=== PATIENT | male | born 1950 | race Caucasian/White ===

== ENCOUNTER → 2020-03-02 10:55 | Outpatient (BNVA) | payer MEDICARE, BC, SELFPAY | PROVIDERS: Family Provider Registered Nurse; PCP Registered Nurse; Visit Provider Urology | DX: C61 Malignant neoplasm of prostate (principal); R97.20 Elevated prostate specific antigen [PSA] | CPT/HCPCS: 81001; 84153 ==

== ENCOUNTER → 2020-03-16 10:04 | Outpatient (BNVA) | payer MEDICARE, BC, SELFPAY | PROVIDERS: Family Provider Registered Nurse; PCP Registered Nurse; Visit Provider Registered Nurse | DX: I10 Essential (primary) hypertension (principal); E78.5 Hyperlipidemia, unspecified; Z00.00 Encounter for general adult medical examination without abnormal findings; Z53.20 Procedure and treatment not carried out because of patient's decision for unspecified reasons | CPT/HCPCS: 80053; 80061; 85025 ==

== ENCOUNTER → 2020-04-20 09:09 | Outpatient (BNVA) | payer MEDICARE, BC, SELFPAY | PROVIDERS: Family Provider Registered Nurse; PCP Registered Nurse; Visit Provider Urology | DX: R39.12 Poor urinary stream (principal); N30.90 Cystitis, unspecified without hematuria; C61 Malignant neoplasm of prostate | CPT/HCPCS: 81001 ==

== ENCOUNTER → 2020-05-10 09:05 | Outpatient (BNVA) | payer MEDICARE, BC, SELFPAY | PROVIDERS: Family Provider Registered Nurse; PCP Registered Nurse; Visit Provider Urology | DX: N30.90 Cystitis, unspecified without hematuria (principal); R33.8 Other retention of urine; N35.913 Unspecified membranous urethral stricture, male; R30.0 Dysuria; R39.198 Other difficulties with micturition; C61 Malignant neoplasm of prostate | CPT/HCPCS: 81001 ==

== ENCOUNTER 2020-05-12 11:30 | Day surgery (SDC) | payer MEDICARE, BC, SELFPAY ==
[2020-05-11 10:28] VITALS: BMI 29.5
[2020-05-12] VITALS (7 sets, daily range): BP systolic 120–149; BP diastolic 70–78; PULSE 65–75; RESP 16–19; TEMP 36.2–37; O2SAT 96–100
--- NOTE | 2020-05-12 | SCC_ITS ---
Procedure: After routine preoperative evaluation examination and obtaining of informed consent he was taken to the operating suite on 05/12/2020 where general anesthesia was administered without difficulty after appropriate timeout was performed, SCDs confirmed to be functioning, preoperative antibiotics administered, beta-vivi protocol confirmed. 52.3 seconds of fluoroscopic guidance, for a cumulative dose of 10.34 mGy, was provided to Dr. Barrientos by the radiology department. C-arm images of the abdomen were saved for the patient's permanent record. YOBANY
--- NOTE | 2020-05-12 11:47 | P.ANESASSM_ITS ---
Pre-Anesthetic Assessment Pre-Anesthetic Assessment: Height/Weight: Height 1.8 m Weight 96.162 kg Temp Pulse Resp BP Pulse Ox 98.6 F 66 18 149/73 97 05/12/20 11:40 05/12/20 11:40 05/12/20 11:40 05/12/20 11:40 05/12/20 11:40 Preop Diagnosis: Urethral stricture Proposed Procedure: Operation Date: 05/12/20 13:05 Proposed Procedures p Cystoscopy/85770 N35.913(Not Applicable) - Shaw Barrientos MD s Urethral Dilation(Not Applicable) - Shaw Barrientos MD Familial anesthetic complications: None Was Beta Alfred taken within 24 hours: N/A Last intake: 16 oz water at 0700 dinner at 1800 yesterday Social: Social History: Alcohol and Tobacco Exam: Pre-Anes Outpt Exam: alert, oriented x 3, clear to auscultation bilaterally and regular rate & rhythm Airway: Cervical ROM: WNL MP: 4 Dentition: Chipped and Loose (lower teeth are loose) CV/HEM: CV/HEM: HTN : : None reported Hepatic: Hepatic: None reported GI: GI: GERD Metabolic: Metabolic: Hyperlipidemia and Morbid obesity Musc/skel: Musc/skel: None reported Neuropsych: Neuropsych: None reported Anesthetic Plan: ASA status: 2 Anesthesia: General Risk of > 500 ml blood loss (7ml/kg in children): No PFSH Anesthesia PFSH: Medical History Erectile dysfunction Membranous urethral stricture Prostate cancer Surgical History H/O vasectomy Family History Mother No problems noted. Father , at age 84 Cancer prostate Myocardial infarction (lateral wall) Social History Smoking and tobacco status: light tobacco smoker Alcohol intake: current Alcohol intake frequency: few times a month Adopted: No Caregiver/support person: No Lives independently: No Household members: spouse Marital status: Current occupational status: retired History of recent travel: No Current gender identity: Male Data Anesthesia Cardiac Studies: No Data to Display
--- NOTE | 2020-05-12 11:48 | SC_ITS ---
WS: [id number] C-arm fluoroscopy for insertion of urologic catheter, 05/12/2020 Clinical Data: Fluoroscopic guidance for urethral stricture dilation Comparison: None. Findings: Dr. Barrientos inserted a guidewire and then a urologic catheter into the urinary bladder. SC/C-arm FL for Urology Impression: Multiple imaging of insertion of catheter into urinary bladder.
[2020-05-12] MEDS: sodium chloride 0.9% 1,000 ML 30 ML IV (12:01)
--- NOTE | 2020-05-12 13:35 | W.PM.OPSUD ---
Surgery/Procedure H&P Update DATE OF PROCEDURE: May 12, 2020 DATE H&P PERFORMED: 05/10/20 H&P UPDATE INFORMATION: I have reviewed H&P completed within last 30 days, No changes to prior documentation and H&P is in [facility] [place] EMR on date indicated PREOP DIAGNOSIS: Urethral stricture PLANNED PROCEDURE: Operation Date: 05/12/20 13:05 Proposed Procedures p Cystoscopy/90810 N35.913(Not Applicable) - Shaw Barrientos MD s Urethral Dilation(Not Applicable) - Shaw Barrientos MD
--- NOTE | 2020-05-12 13:36 | P.OP_ITS ---
Operative Report Date of procedure: May 12, 2020 Pre-op Diagnosis: Membranous urethral stricture urethral stricture Post-op diagnosis: same Pathology: none sent Surgeon: Floyd Anesthesia: General Estimated blood loss: Minimal Urine output: Not measured Complications: None Findings: Tight membranous urethral stricture, easily dilated. Otoole left in place for further passive dilation Disposition: PACU Brief History: Wilfrido Turner is a delightful 69-year-old white male status post radiation therapy for prostate cancer with no evidence of recurrence who recently started complaining of decreasing force of stream, initial dysuria, and symptoms suspicious in general for possible prostatitis. He was treated with a short course of ciprofloxacin and he thought that there was some improvement in his symptoms but not resolution. For that reason that course was continued but after almost a total of 1 month of treatment he was still having for the most part significant similar symptoms. At that point a cystoscopy was performed that showed a tight membranous urethral stricture that was impassable in the clinic. It was decided to perform a cystoscopy with urethral dilation under anesthesia Procedure: After routine preoperative evaluation examination and obtaining of informed consent he was taken to the operating suite on 05/12/2020 where general anesthesia was administered without difficulty after appropriate timeout was performed, SCDs confirmed to be functioning, preoperative antibiotics administered, beta-vivi protocol confirmed. Prepped and draped in the usual sterile fashion in dorsolithotomy position pain careful attention to avoiding pressure points. 21 Tajik cystoscope with 30 degree lens was introduced into the urethral meatus and advanced to just distal to the stricture. Contrast was injected and a URETHROGRAM was performed: That showed the narrow strictured area extending no more than approximately 0.25 cm. Proximal to that the prostatic lumen and urethra looked normal. Contrast was injected into the bladder with normal appearance. Flexible tip guidewire was advanced into the stricture and under fluoroscopic guidance confirmed to be in the bladder. The urethral stricture was then dilated with renal dilator set beginning at 8 Tajik and then continuing to 18 Tajik. Utilizing first the smaller dilators then the larger dilators over the snake. Each dilation was monitored under fluoroscopic guidance and went very well. A 17 Tajik cystoscope was then passed over the guidewire easily into the bladder and the bladder was carefully inspected with 30 and 70 degree lens with no gross pathology identified. The wire was replaced and the scope was backed out. Urethral stricture that was dilated appeared as expected with no stones or other pathology located near it. A 16 Tajik point lay ira tip catheter was then advanced over the guidewire easily through the stricture into the bladder without difficulty. 10 cc was placed in the balloon the wire removed and the catheter confirmed to be working just fine. Tolerated the procedure well without complications and was awakened in the operating room and returned to the recovery in stable condition. PLANS: 1. Maintain Otoole catheter until early next week. Voiding trial in my office with [facility] instruction. 2. Discharge from outpatient surgery today with leg and night bag
[2020-05-12] MEDS: levofloxacin-dextrose 5 % 500 MG/100 ML PREMIX 100 MG IV (13:48)
[2020-05-12] MEDS: iohexol 300 mg/mL 50 mL Btl (OR ONLY) XX (14:14)
== END 2020-05-12 15:20 | disposition home or self-care (01) ==
PROVIDERS: PCP Registered Nurse; Visit Provider Urology
PROC: 0TJB8ZZ Inspection of Bladder, Via Natural or Artificial Opening Endoscopic (ICD-10-PCS; CPT 52000; principal; 2020-05-12 13:05)
PROC: (CPT 52281; 2020-05-12 13:05)
DX: N35.919 Unspecified urethral stricture, male, unspecified site (principal); Z92.3 Personal history of irradiation; Z85.46 Personal history of malignant neoplasm of prostate; I10 Essential (primary) hypertension; K21.9 Gastro-esophageal reflux disease without esophagitis; E78.5 Hyperlipidemia, unspecified; E66.01 Morbid (severe) obesity due to excess calories; Z68.29 Body mass index [BMI] 29.0-29.9, adult; F17.210 Nicotine dependence, cigarettes, uncomplicated
CPT/HCPCS: 52281; 12345; 76000; J1100; J1885; J1956; J2250; J2405; J2704; J3010; J7030

== ENCOUNTER → 2020-05-31 09:06 | Outpatient (BNVA) | payer MEDICARE, BC, SELFPAY | PROVIDERS: PCP Registered Nurse; Visit Provider Urology | DX: N35.913 Unspecified membranous urethral stricture, male (principal); C61 Malignant neoplasm of prostate | CPT/HCPCS: 81001 ==

== ENCOUNTER → 2020-08-31 10:06 | Outpatient (BNVA) | payer MEDICARE, BC, SELFPAY | PROVIDERS: PCP Registered Nurse; Visit Provider Urology | DX: C61 Malignant neoplasm of prostate (principal); N35.913 Unspecified membranous urethral stricture, male | CPT/HCPCS: 81003; 84153 ==

== ENCOUNTER → 2021-02-22 13:05 | Outpatient (BNVA) | payer MEDICARE, BC, SELFPAY | PROVIDERS: PCP Registered Nurse; Visit Provider Podiatrist Foot & Ankle Surgery | DX: M77.31 Calcaneal spur, right foot (principal); M79.672 Pain in left foot | CPT/HCPCS: 73630 ==

== ENCOUNTER → 2021-02-28 11:06 | Outpatient (BNVA) | payer MEDICARE, BC, SELFPAY | PROVIDERS: PCP Registered Nurse; Visit Provider Urology | DX: N30.90 Cystitis, unspecified without hematuria (principal); Z12.5 Encounter for screening for malignant neoplasm of prostate; C61 Malignant neoplasm of prostate; N35.913 Unspecified membranous urethral stricture, male; F17.210 Nicotine dependence, cigarettes, uncomplicated | CPT/HCPCS: 81003; G0103 ==

== ENCOUNTER 2021-04-06 14:03 | Outpatient (CLI) | payer MEDICARE, BC, SELFPAY | END 2021-04-06 14:04 | disposition home or self-care (01) | LOC: SPT 14:20 | PROVIDERS: PCP Registered Nurse; Visit Provider Podiatrist Foot & Ankle Surgery | DX: Z46.89 Encounter for fitting and adjustment of other specified devices (principal); M72.2 Plantar fascial fibromatosis | CPT/HCPCS: L3030; L4397 ==

== ENCOUNTER → 2021-07-10 11:11 | Outpatient (BNVA) | payer MEDICARE, BC, SELFPAY | PROVIDERS: PCP Registered Nurse; Visit Provider Registered Nurse | DX: I10 Essential (primary) hypertension (principal); E78.5 Hyperlipidemia, unspecified | CPT/HCPCS: 80053; 80061; 85025 ==

== ENCOUNTER → 2021-11-21 10:44 | Outpatient (BNVA) | payer MEDICARE, BC, SELFPAY | PROVIDERS: PCP Registered Nurse; Visit Provider Urology | DX: R97.20 Elevated prostate specific antigen [PSA] (principal); C61 Malignant neoplasm of prostate; N35.913 Unspecified membranous urethral stricture, male | CPT/HCPCS: 81003; 84153 ==

== ENCOUNTER 2022-04-10 06:57 | Outpatient (CLI) | payer MEDICARE, BC, SELFPAY ==
[2022-04-10 07:14] VITALS: BMI 29.2
--- NOTE | 2022-04-10 07:15 | ECG_ITS ---
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 Interpretive Statements NAME OF STUDY: DOBUTAMINE SESTAMIBI STRESS TEST INDICATION: [Exertional Shortness of Breath] Procedure: At the baseline, the blood pressure was 146/82 mmHg with a heart rate of 68 bpm. The electrocardiogram showed normal sinus rhythm, normal axis with normal ST and T's. IV dobutamine and atropine were administered to induced distress. Maximum heart rate predicted was 151 bpm. Patient reached maximum heart rate of 140 bpm which was 92% of maximum predicted heart rate. Total infusion time was 10 minutes 27 seconds. The EKG at the peak infusion revealed sinus tachycardia with no significant ST-T wave changes. Blood pressure at the end of recovery phase was 130/73 mmHg with a heart rate of 83 bpm. Conclusion: 1. Normal EKG response to dobutamine infusion 2. No dobutamine induced symptoms reported. 3. Normal blood pressure and heart rate response. 4. Sestamibi/sestamibi perfusion scan pending; see separate report. Electronically Signed On 05-19-2022 11:12:09 CDT by David Kaur M.D. [email or web address]
--- NOTE | 2022-04-10 07:15 | NMCV_ITS ---
NM venecia perf SPECT r/s* [id number] Jose Turner Age: 71 Gender: M : 1950 Exam Date: 04/10/2022 08:28 Ordering Phys: Qasim Pitts Technologist: YANET Balbuena Exam Location: [facility] Indications: Chest pain STRESS TEST [facility] IMAGE PROTOCOL Rest/Stress 1 Lexiscan Day Radiopharmaceutical Dose (mCi) Administration Site Administered by Rest: Tc-99m 10.8 IV YANET Balbuena Sestamibi Stress:Tc-99m 32.8 IV YANET Balbuena Sestamibi Rest: 10-Apr-2022 60 Discovery 630 Stress: 10-Apr-2022 30 Discovery 630 0.4mg Lexiscan. Images obtained in supine and prone position. SPECT RESULTS Technical Quality: Good Raw Data Analysis: Normal Image Corrections: No attenuation or motion correction applied Summed Stress Score: 0 Summed Rest Score: 0 Summed Difference Score: 0 PERFUSION FINDINGS SPECT images demonstrate homogeneous tracer distribution throughout the myocardium. FUNCTIONAL RESULTS (calculated via Gated SPECT) Stress Image LV EF (%): 55 Stress EDV (mL):120 TID: 1 Stress ESV (mL):54 FUNCTIONAL FINDINGS: There is normal left ventricular systolic function. IMPRESSIONS 1. Normal myocardial perfusion imaging with no evidence of ischemia. 2. LV systolic function is normal David Kaur MD (Electronically Signed) Final Date: 13 April 2022 23:24 S
[2022-04-10] MEDS: DOBUTtamine 200 MG in sodium chloride 0.9% 34 ML 14.29 MG IV (09:07)
[2022-04-10] MEDS: atropine 0.1 mg/mL Syr 10 mL 0.5 MG IVP (09:17)
[2022-04-10] MEDS: metoprolol tartrate 1 mg/1 mL SDV 5 mL 5 MG IV (09:22)
[2022-04-10 09:32] VITALS: BP 130/73; PULSE 86
== END 2022-04-10 06:58 | disposition home or self-care (01) ==
LOC: CDL 06:58
PROVIDERS: PCP Registered Nurse; Visit Provider Nurse Practitioner Family
DX: R06.02 Shortness of breath (principal)
CPT/HCPCS: 78452; 93017; A9500; J0461; J1250; J3490; J7050

== ENCOUNTER → 2022-04-17 10:20 | Outpatient (BNVA) | payer MEDICARE, BC, SELFPAY | PROVIDERS: PCP Registered Nurse; Referring Provider Registered Nurse; Visit Provider Orthopaedic Surgery | DX: M67.911 Unspecified disorder of synovium and tendon, right shoulder (principal); M25.511 Pain in right shoulder | CPT/HCPCS: 20610; 73030; 99203; J1100; J2795 ==

== ENCOUNTER → 2022-05-22 08:36 | Outpatient (BNVA) | payer MEDICARE, BC, SELFPAY | PROVIDERS: PCP Registered Nurse; Visit Provider Urology | DX: C61 Malignant neoplasm of prostate (principal) | CPT/HCPCS: 84153 ==

== ENCOUNTER → 2022-05-31 10:50 | Outpatient (BNVA) | payer MEDICARE, BC, SELFPAY | PROVIDERS: PCP Registered Nurse; Visit Provider Urology | DX: N35.913 Unspecified membranous urethral stricture, male (principal); C61 Malignant neoplasm of prostate | CPT/HCPCS: 51798; 81003; 99213 ==

== ENCOUNTER → 2022-06-14 10:54 | Outpatient (BNVA) | payer MEDICARE, BC, SELFPAY | PROVIDERS: PCP Registered Nurse; Visit Provider Nurse Practitioner Family | DX: M25.50 Pain in unspecified joint (principal); R53.83 Other fatigue; R30.0 Dysuria | CPT/HCPCS: 80053; 85025; 85651; 86140; 86160; 86162; 86235; 86255; 86376; 86431 ==

== ENCOUNTER 2022-08-16 09:41 | Outpatient (CLI) | payer MEDICARE, BC, SELFPAY ==
--- NOTE | 2022-08-16 10:15 | CT_ITS ---
WS: [id number] LDCT LUNG CANCER SCREENING TECHNIQUE: Noncontrast CT of the chest with coronal and sagittal reformatted images. CLINICAL INFORMATION: F17.210 - Nicotine dependence, cigarettes, uncomplicated COMPARISON: None. DLP: 85.39 mGy.cm DIvol: Mean CTDIvol: 1.60 (mGy) All CT scans at [facility] use at least one of these dose optimization techniques: automat ed exposure control; mA and/or kV adjustment per patient size (includes targeted exams where dose is matched to clinical indication); or iterative reconstruction. FINDINGS: Moderate chronic emphysematous changes. No acute pulmonary infiltrates. No focal pneumonia or pleural fluid. No suspicious pulmonary parenchymal opacities. Mild aortic calcification. Coronary calcification. No mediastinal or hilar lymphadenopathy. No axilla ry lymphadenopathy. Splenic granulomas. Adrenal glands are normal. Hypertrophic changes thoracic spine. CT/CT lung screening [id number] IMPRESSION: LUNG-RADS: 1-Negative FOLLOW UP: 12 Month: Continue annual screening with LDCT
== END 2022-08-16 09:42 | disposition home or self-care (01) ==
LOC: RAD 09:41
PROVIDERS: PCP Registered Nurse; Visit Provider Nurse Practitioner Family
DX: Z12.2 Encounter for screening for malignant neoplasm of respiratory organs (principal); F17.210 Nicotine dependence, cigarettes, uncomplicated
CPT/HCPCS: 71271

== ENCOUNTER → 2022-08-27 09:34 | Outpatient (BNVA) | payer MEDICARE, BC, SELFPAY | PROVIDERS: PCP Registered Nurse; Visit Provider Internal Medicine | DX: M25.9 Joint disorder, unspecified (principal); R50.9 Fever, unspecified; R79.82 Elevated C-reactive protein (CRP); Z11.59 Encounter for screening for other viral diseases; M45.0 Ankylosing spondylitis of multiple sites in spine | CPT/HCPCS: 36415; 72202; 73120; 73560; 80053; 82024; 82550; 82728; 83516; 83540; 85025; 85651; 86003; 86008; 86036; 86140; 86200; 86618; 86666; 86704; 86757; 86803; 86812; 87340; 99204 ==

== ENCOUNTER → 2022-09-27 14:27 | Outpatient (BNVA) | payer MEDICARE, BC, SELFPAY | PROVIDERS: PCP Registered Nurse; Visit Provider Internal Medicine | DX: M25.9 Joint disorder, unspecified (principal); R79.82 Elevated C-reactive protein (CRP); R50.9 Fever, unspecified; Z79.52 Long term (current) use of systemic steroids; Z92.3 Personal history of irradiation; Z85.46 Personal history of malignant neoplasm of prostate | CPT/HCPCS: 99214 ==

== ENCOUNTER → 2022-11-15 09:11 | Outpatient (BNVA) | payer MEDICARE, SELFPAY | PROVIDERS: PCP Registered Nurse; Visit Provider Nurse Practitioner Family | DX: Z15.89 Genetic susceptibility to other disease (principal); I10 Essential (primary) hypertension | CPT/HCPCS: 80053; 85025 ==

== ENCOUNTER → 2022-11-30 10:19 | Outpatient (BNVA) | payer MEDICARE, SELFPAY | PROVIDERS: PCP Registered Nurse; Visit Provider Nurse Practitioner Family | DX: C61 Malignant neoplasm of prostate (principal); R79.89 Other specified abnormal findings of blood chemistry | CPT/HCPCS: 84153; 84403 ==

== ENCOUNTER → 2022-12-04 09:41 | Outpatient (BNVA) | payer MEDICARE, BC, SELFPAY | PROVIDERS: PCP Registered Nurse; Visit Provider Urology | DX: C61 Malignant neoplasm of prostate (principal); N35.913 Unspecified membranous urethral stricture, male | CPT/HCPCS: 51798; 81003; 99213 ==

== ENCOUNTER → 2023-02-20 09:18 | Outpatient (BNVA) | payer MEDICARE, BC, SELFPAY | PROVIDERS: PCP Registered Nurse; Visit Provider Internal Medicine | DX: M19.011 Primary osteoarthritis, right shoulder (principal); M25.569 Pain in unspecified knee; M19.90 Unspecified osteoarthritis, unspecified site; M25.9 Joint disorder, unspecified; G57.93 Unspecified mononeuropathy of bilateral lower limbs | CPT/HCPCS: 80053; 82607; 82728; 82746; 83540; 84443; 85025; 85651; 86140 ==

== ENCOUNTER → 2023-04-02 08:52 | Outpatient (BNVA) | payer MEDICARE, BC, SELFPAY | PROVIDERS: PCP Registered Nurse; Visit Provider Internal Medicine | DX: M25.9 Joint disorder, unspecified (principal); R50.9 Fever, unspecified; R79.82 Elevated C-reactive protein (CRP); R21 Rash and other nonspecific skin eruption; M72.2 Plantar fascial fibromatosis | CPT/HCPCS: 99214 ==

== ENCOUNTER → 2023-04-24 09:13 | Outpatient (BNVA) | payer MEDICARE, BC, SELFPAY | PROVIDERS: PCP Registered Nurse; Visit Provider Podiatrist Foot & Ankle Surgery | DX: M72.2 Plantar fascial fibromatosis (principal); G62.9 Polyneuropathy, unspecified | CPT/HCPCS: 99213 ==

== ENCOUNTER → 2023-05-02 13:18 | Outpatient (BNVA) | payer MEDICARE, BC, SELFPAY | PROVIDERS: PCP Registered Nurse; Visit Provider Nurse Practitioner Family | DX: L30.9 Dermatitis, unspecified (principal); L57.0 Actinic keratosis; L82.1 Other seborrheic keratosis; C44.319 Basal cell carcinoma of skin of other parts of face; L57.8 Other skin changes due to chronic exposure to nonionizing radiation | CPT/HCPCS: 11102; 17000; 17003; 99213 ==

== ENCOUNTER 2023-05-21 11:29 | Outpatient (CLI) | payer MEDICARE, BC, SELFPAY | END 2023-05-21 11:30 | disposition home or self-care (01) | LOC: SPT 11:31 | PROVIDERS: PCP Registered Nurse; Visit Provider Podiatrist Foot & Ankle Surgery | DX: Z46.89 Encounter for fitting and adjustment of other specified devices (principal); M72.2 Plantar fascial fibromatosis | CPT/HCPCS: 97760; L3030 ==

== ENCOUNTER → 2023-06-10 09:10 | Outpatient (BNVA) | payer MEDICARE, BC, SELFPAY | PROVIDERS: PCP Registered Nurse; Visit Provider Dermatology | DX: C44.319 Basal cell carcinoma of skin of other parts of face (principal); L57.0 Actinic keratosis | CPT/HCPCS: 12052; 17000; 17003; 17311 ==

== ENCOUNTER → 2023-06-27 09:16 | Outpatient (BNVA) | payer MEDICARE, BC, SELFPAY | PROVIDERS: PCP Registered Nurse; Visit Provider Registered Nurse | DX: Z85.46 Personal history of malignant neoplasm of prostate (principal) | CPT/HCPCS: 84153 ==

== ENCOUNTER → 2023-07-08 09:49 | Outpatient (BNVA) | payer MEDICARE, BC, SELFPAY | PROVIDERS: PCP Registered Nurse; Visit Provider Internal Medicine | DX: M72.2 Plantar fascial fibromatosis (principal); G62.9 Polyneuropathy, unspecified; G57.93 Unspecified mononeuropathy of bilateral lower limbs; C61 Malignant neoplasm of prostate; M25.9 Joint disorder, unspecified; R50.9 Fever, unspecified; R79.82 Elevated C-reactive protein (CRP); R21 Rash and other nonspecific skin eruption | CPT/HCPCS: 36415; 80053; 81001; 82550; 82728; 83540; 84443; 85025; 85651; 86140; 99214 ==

== ENCOUNTER → 2023-10-10 11:29 | Outpatient (BNVA) | payer MEDICARE, BC, SELFPAY | PROVIDERS: PCP Registered Nurse; Visit Provider Nurse Practitioner Family | DX: L30.9 Dermatitis, unspecified (principal); L57.0 Actinic keratosis; L82.1 Other seborrheic keratosis; L57.8 Other skin changes due to chronic exposure to nonionizing radiation | CPT/HCPCS: 11104; 17000; 99213 ==

== ENCOUNTER → 2023-10-22 11:18 | Outpatient (BNVA) | payer MEDICARE, BC, SELFPAY | PROVIDERS: PCP Registered Nurse; Visit Provider Nurse Practitioner Family | DX: Z48.02 Encounter for removal of sutures (principal); L27.0 Generalized skin eruption due to drugs and medicaments taken internally; L57.8 Other skin changes due to chronic exposure to nonionizing radiation | CPT/HCPCS: 99213 ==

== ENCOUNTER → 2024-03-30 09:55 | Outpatient (BNVA) | payer MEDICARE, BC, SELFPAY | PROVIDERS: PCP Registered Nurse; Visit Provider Podiatrist Foot & Ankle Surgery | DX: M72.2 Plantar fascial fibromatosis (principal); G62.9 Polyneuropathy, unspecified | CPT/HCPCS: 99213 ==

== ENCOUNTER 2024-04-28 14:27 | Outpatient (CLI) | payer MEDICARE, BC, SELFPAY | END 2024-04-28 14:28 | disposition home or self-care (01) | LOC: SPT 14:28 | PROVIDERS: PCP Registered Nurse; Visit Provider Podiatrist Foot & Ankle Surgery | DX: Z46.89 Encounter for fitting and adjustment of other specified devices (principal); M72.2 Plantar fascial fibromatosis | CPT/HCPCS: L3030 ==

== ENCOUNTER → 2024-05-07 09:47 | Outpatient (BNVA) | payer MEDICARE, BC, SELFPAY | PROVIDERS: PCP Registered Nurse; Visit Provider Registered Nurse | DX: C61 Malignant neoplasm of prostate (principal); I10 Essential (primary) hypertension | CPT/HCPCS: 80053; 80061; 84153; 85025 ==

== ENCOUNTER 2024-05-25 10:43 | Outpatient (CLI) | payer MEDICARE, BC, SELFPAY ==
--- NOTE | 2024-05-25 11:00 | CT_ITS ---
WS: [id number] LDCT LUNG CANCER SCREENING TECHNIQUE: Noncontrast CT of the chest with coronal and sagittal reformatted images. CLINICAL INFORMATION: F17.210 - Nicotine dependence, cigarettes, uncomplicated COMPARISON: 2021 DLP: 99.01 mGy.cm DIvol: Mean CTDIvol: 2.20 (mGy) All CT scans at [facility] use at least one of these dose optimization techniques: automat ed exposure control; mA and/or kV adjustment per patient size (includes targeted exams where dose is matched to clinical indication); or iterative reconstruction. FINDINGS: Moderate chronic emphysematous changes. No suspicious pulmonary parenchymal opacities. Mild aortic calcification. Coronary calcification. No mediastinal or hilar lymphadenopathy. No axilla ry lymphadenopathy. Splenic granulomas. Adrenal glands are normal. Anterior hypertrophic changes thor acic spine. Mild thoracic curve. Mild thoracic kyphosis. CT/CT lung screening [id number] IMPRESSION: LUNG-RADS: 1-Negative FOLLOW UP: 12 Month: Continue annual screening with LDCT
== END 2024-05-25 10:44 | disposition home or self-care (01) ==
LOC: RAD 10:44
PROVIDERS: PCP Registered Nurse; Visit Provider Registered Nurse
DX: Z12.2 Encounter for screening for malignant neoplasm of respiratory organs (principal); F17.210 Nicotine dependence, cigarettes, uncomplicated; J43.9 Emphysema, unspecified; I25.84 Coronary atherosclerosis due to calcified coronary lesion; D73.89 Other diseases of spleen
CPT/HCPCS: 71271; 80053; 80061; 84153; 85025

== ENCOUNTER → 2024-10-12 08:54 | Outpatient (BNVA) | payer MEDICARE, BC, SELFPAY | PROVIDERS: PCP Registered Nurse; Visit Provider Nurse Practitioner Family | DX: L57.8 Other skin changes due to chronic exposure to nonionizing radiation (principal); L81.4 Other melanin hyperpigmentation; D22.5 Melanocytic nevi of trunk; L27.0 Generalized skin eruption due to drugs and medicaments taken internally; L82.1 Other seborrheic keratosis; L82.0 Inflamed seborrheic keratosis; R20.8 Other disturbances of skin sensation; L29.89 Other pruritus; L53.8 Other specified erythematous conditions; L57.0 Actinic keratosis | CPT/HCPCS: 17000; 17110; 99214 ==

== ENCOUNTER → 2025-01-14 10:36 | Outpatient (BNVA) | payer MEDICARE, BC, SELFPAY | PROVIDERS: PCP Registered Nurse; Visit Provider Nurse Practitioner Family | DX: L27.0 Generalized skin eruption due to drugs and medicaments taken internally (principal); L57.8 Other skin changes due to chronic exposure to nonionizing radiation; L81.4 Other melanin hyperpigmentation; D22.5 Melanocytic nevi of trunk; L57.0 Actinic keratosis | CPT/HCPCS: 17000; 99214 ==

== ENCOUNTER → 2025-05-19 11:00 | Outpatient (BNVA) | payer MEDICARE, BC, SELFPAY | PROVIDERS: PCP Registered Nurse; Visit Provider Registered Nurse | DX: Z00.00 Encounter for general adult medical examination without abnormal findings (principal); I10 Essential (primary) hypertension | CPT/HCPCS: 80053; 80061; 85025 ==

== ENCOUNTER 2025-06-04 10:16 | Outpatient (CLI) | payer MEDICARE, BC, SELFPAY ==
--- NOTE | 2025-06-04 10:30 | CT_ITS ---
WS: [id number] LDCT LUNG CANCER SCREENING HISTORY: F17.210 - Nicotine dependence, cigarettes, uncomplicated TECHNIQUE: Axial imaging performed from the apices to 1 cm below the costophrenic angles. Coronal and sagittal reformats are submitted with axial MIP series. All CT scans at [facility] use at least one of these dose optimization techniques: automated exposure control; mA and/or kV adjustment per patient size (includes targeted exams where dose is matched to clinical indication); or iterative reconstruction. DLP: 89.69 mGy.cm DIvol: Mean CTDIvol: 2.00 (mGy) COMPARISON: 05/25/2024 Diagnostic quality: Satisfactory Lungs: Linear atelectasis in the lingula and LEFT lower lobes. Benign granuloma LEFT lower lobe. No pneumonia. No pulmonary mass or nodule. Heart: Normal size heart with no pericardial effusion.. Other findings: Mild atherosclerosis aorta. Mildly dilated pulmonary artery. No pathologically enlarged lymph nodes. Coronary artery calcifications. Hepatic and splenic granulomata. No adrenal mass. CT/CT lung screening [id number] IMPRESSION: LUNG-RADS: 1-Negative FOLLOW UP: 12 Month: Continue annual screening with LDCT OTHER FINDINGS (S MODIFIER): None.
--- NOTE | 2025-06-04 11:00 | USCV_ITS ---
Jose Turner Age: 74 Gender: M : 1950 Exam Date: 06/04/2025 11:13 Ordering Phys: Rachelle Blancas TANK CLEANER Technologist: SUN Exam Location: [facility] [place] Indication: bruit Risk Factors: Previous Vascular Surgery: Right Brachial BP: / Left Brachial BP: / Right Left Velocity (cm/s) Spectral Plaque Velocity (cm/s) Spectral Plaque Syst/Diast Broadening Syst/Diast Broadening 76.30/ 14.10 Prox CCA 74.40 / 18.50 60.80/ 11.50 Mid CCA 82.40 / 20.10 45.20/ 11.50 Distal CCA 71.40 / 17.50 37.70/ 12.90 Prox ICA 42.40 / 14.00 64.00/ 22.50 Mid ICA 50.40 / 19.30 48.10/ 14.60 Distal ICA 53.50 / 20.30 67.00 ECA 43.60 0.80 ICA/CCA 0.60 Antegrade Vertebral Antegrade 44.00/ 12.70 cm/s 39.20/ 12.00 cm/s Tri Subclavian Tri 65.50 72.80 FINDINGS Comparison: none available. No significant elevation of systolic or diastolic velocities. Waveforms are normal. Mixture of calcified and noncalcified plaque in the bifurcations. CONCLUSIONS Bilateral ICA stenosis less than 50%. Mild carotid atherosclerosis. Dr. Patrica Heredia DO (Electronically Signed) Final Date: 04 June 2025 12:09 S
== END 2025-06-04 10:17 | disposition home or self-care (01) ==
LOC: RAD 10:18
PROVIDERS: PCP Registered Nurse; Visit Provider Registered Nurse
DX: Z12.2 Encounter for screening for malignant neoplasm of respiratory organs (principal); I65.23 Occlusion and stenosis of bilateral carotid arteries; F17.210 Nicotine dependence, cigarettes, uncomplicated
CPT/HCPCS: 71271; 93880

== ENCOUNTER → 2025-06-29 11:19 | Outpatient (BNVA) | payer MEDICARE, BC, SELFPAY | PROVIDERS: PCP Registered Nurse; Visit Provider Nurse Practitioner Family | DX: L30.9 Dermatitis, unspecified (principal); L82.1 Other seborrheic keratosis; L81.4 Other melanin hyperpigmentation; L57.8 Other skin changes due to chronic exposure to nonionizing radiation; D22.5 Melanocytic nevi of trunk; L82.0 Inflamed seborrheic keratosis; L29.89 Other pruritus; L53.8 Other specified erythematous conditions; Z78.9 Other specified health status; L57.0 Actinic keratosis | CPT/HCPCS: 17000; 17110; 99213 ==